=== PATIENT | male | born 1985 | race Caucasian/White ===

== ENCOUNTER 2022-10-20 07:00 | Day surgery (SDC) | payer OTHER ==
[2022-10-20] VITALS (225 sets, daily range): BP systolic 79–208; BP diastolic 36–160
[~2022-10-20] VITALS: Ht 172.7 cm; Wt 84.4 kg
--- NOTE | 2022-10-20 07:05 | NUR ---
PT, AND FAMILY HAVE ARRIVED TO [facility] SUITES, ALL ESCORTED TO ROOM, AND POC HAS BEEN EXPLAINED ALL QUESTIONS AHVE BEEN ANSWERED. PT HAS BEEN ORIENTED TO ROOM, CALL LIGHT AND FALL RISK PRECAUTIONS. PT IS A&OX3, FOLLOWS COMMANDS AND IS ABLE TO MAKE NEEDS KNOWN. PT HAS NO COMPLAINTS AT THIS TIME. PT HAS CALL LIGHT NEAR AND WILL CONTINUE TO MONITOR.
[2022-10-20 07:32] LABS: BASO% 0.3 % (0-3); EOS% 2.9 % (0-8); HEMATOCRIT 44.4 % (39.0-50.0); HEMOGLOBIN 14.9 g/dl (14.0-18.0); IMMATURE GRANULOCYTES 0.1 % (0.0-5.0); LYMPH% 26.1 % (15-41); MEAN CELL VOLUME 91.4 fL CALC (80.0-100.0); MEAN CORPUSCULAR HGB 30.7 pG CALC (26.0-32.0); MEAN CORPUSCULAR HGB CONC 33.6 g/dL CAL (32.0-36.0); MONO% 12.6 % (2-13); NEUT# 4.25 thou/uL (1.82-7.42); RED BLOOD COUNT 4.86 mill/uL (4.70-6.10); RED CELL DISTRI WIDTH 12.1 % (11.5-15.5)
[2022-10-20 08:03] LABS: ALBUMIN 4.2 g/dL (3.2-5.0); ALKALINE PHOSPHATASE 62 u/l (38-126); ANION GAP 13 (6-22 (CALC)); BILIRUBIN, TOTAL 0.7 mg/dL (0.2-1.3); BUN 19 mg/dL (9-20); BUN/CREATININE RATIO 23 (12-20 (CALC)); CARBON DIOXIDE 27 mmol/l (22-30); CHLORIDE 104 mmol/l (95-108); CREATININE 0.8 mg/dL (0.7-1.3); GFR FOR AFR.AMER. > 60 ML/MIN (>=60 (CALC)); GFR OTHER RACES > 60 ML/MIN (>=60 (CALC)); POTASSIUM 4.1 mmol/l (3.5-5.1); SGOT/AST 39 u/l (17-59); SODIUM 140 mmol/l (137-146); TOTAL PROTEIN 6.8 g/dL (6.3-8.2)
--- NOTE | 2022-10-20 09:30 | NUR ---
PT HAS BEEN REASSESSED, PT HAS BEEN ASSISTED TO BATHROOM, GAIT IS STEADY. PT HAS NO CHANGE AND HAS BEEN RESTING COMFORTABLY.
--- NOTE | 2022-10-20 11:25 | NUR ---
Induction Note Patient to [facility] procedure room. Time out performed at 1125. Patient placed on monitors, Malik hugger, bilateral wrist restraints applied for ET tube protection. Versed 5mg given IV push at 1126 Tourniquet applied to RIGHT arm Lidocaine 100mg given at 1127 IV push followed by Rocoronium 10mg at 1128 IV push and held for 90 seconds. Propofol bolus of 160mg given at 1130 IV push. Succinylcholine 80mg given IV push at 1131. Smooth intubation with 7.5 ETT. Positive CO2. Positive Auscultation for air exchange. Patient placed on ventilator for spontaneous ventilation. Placed on Propofol IV drip at 1132. OG inserted. Positive air on auscultation. Positive gastric content. Stomach washed at this time.
--- NOTE | 2022-10-20 11:40 | NUR ---
OG close note Stomach washed at this time. Naltrexone 50 mg with Clonidine 0.1 mg via OG tube. OG will be clamped for 45 minutes.
--- NOTE | 2022-10-20 12:25 | NUR ---
OG open note OG open at this time. Gastric content draining into drainage bag. OG to drain for 45 minutes. Propofol will be titrated down based on patient.
--- NOTE | 2022-10-20 13:10 | NUR ---
OG close note Stomach washed at this time. Naltrexone 50 mg with Clonidine 0.2 mg via OG tube. OG will be clamped for 45 minutes.
[2022-10-20] MEDS ORDERED: NALTREXONE50 MG PO (13:44)
[2022-10-20] MEDS ORDERED: CLONIDINE0.1 MG PO (13:44)
[2022-10-20] MEDS ORDERED: KLONOPIN2 MG PO (13:45)
--- NOTE | 2022-10-20 14:45 | NUR ---
OG close note Stomach washed at this time. Naltrexone 50 mg with Clonidine 0.3 mg via OG tube. OG will be clamped for 45 minutes.
--- NOTE | 2022-10-20 16:20 | NUR ---
OG close note Stomach washed at this time. Naltrexone 25 mg with Clonidine 0.2 mg via OG tube. OG will be clamped for 45 minutes.
--- NOTE | 2022-10-20 18:18 | NUR ---
Extubation note Closing medications given Benadryl 50mg IV push, Decadron 10mg IV push,Magnesium 4 grams IV, Zofran 8mg IV push, Octreotide 100mcg SC. Stomach washed out prior to extubation. Suctioned gastric content. OG removed. Patient extubated. Propofol Discontinued. Wrist restraints removed. Malik hugger Removed. See [facility] Moderate sedate recovery record for further notes and assessment.
--- NOTE | 2022-10-20 19:05 | NUR ---
RECEIVED PATIENT INTO ROOM 291. BEDSIDE REPORT RECEIVED FROM TRACIE LARRY. PATIENT RESTING EYES CLOSED. VSS, PATIENT ON CONTINUOUS PULSE OX, SATURATION 98% ON 2L/NC. NO DISTRESS NOTED. BED IN LOW POSITION, LOCKED AND ALARM ACTIVATED.
--- NOTE | 2022-10-20 22:08 | NUR ---
PATIENT C/O LOWER BACK PAIN 04/03, TORADOL 30MG IVP GIVEN AND REPOSITIONED FOR COMFORT.
[2022-10-21 04:02] VITALS: BP 117/60
--- NOTE | 2022-10-21 04:19 | NUR ---
PATIENT RESTING QUIETLY, EASILY AROUSED. MEDS ADMINISTERED WITHOUT DIFFICULTY. CLONIDINE HELD FOR HR OF 44 PER PULSE OXIMETRY. TEMPERATURE OF 100.2 F, TYLENOL 500MG GIVEN AND ICE PACK APPLIED TO BACK OF NECK. DENIES PAIN AT THIS TIME, NO DISTRESS NOTED. CALL LIGHT WITHIN REACH. BED ALARM ACTIVE.
[2022-10-21 06:20] LABS: BASO% 0.1 % (0-3); IMMATURE GRANULOCYTES 0.3 % (0.0-5.0); LYMPH% 8.5 % (15-41); MEAN CELL VOLUME 92.9 fL CALC (80.0-100.0); MEAN CORPUSCULAR HGB 31.2 pG CALC (26.0-32.0); MEAN CORPUSCULAR HGB CONC 33.6 g/dL CAL (32.0-36.0); MONO% 8.5 % (2-13); NEUT# 5.82 thou/uL (1.82-7.42); NEUT% 82.6 % (42-76); RED BLOOD COUNT 4.1 mill/uL (4.70-6.10); RED CELL DISTRI WIDTH 11.9 % (11.5-15.5)
[2022-10-21 06:31] LABS: HEMATOCRIT 38.1 % (39.0-50.0); HEMOGLOBIN 12.8 g/dl (14.0-18.0)
[2022-10-21 06:43] LABS: ALBUMIN 3.7 g/dL (3.2-5.0); ALKALINE PHOSPHATASE 53 u/l (38-126); ANION GAP 12 (6-22 (CALC)); BILIRUBIN, TOTAL 0.7 mg/dL (0.2-1.3); BUN 14 mg/dL (9-20); BUN/CREATININE RATIO 16 (12-20 (CALC)); CARBON DIOXIDE 25 mmol/l (22-30); CHLORIDE 112 mmol/l (95-108); CREATININE 0.9 mg/dL (0.7-1.3); GFR FOR AFR.AMER. > 60 ML/MIN (>=60 (CALC)); GFR OTHER RACES > 60 ML/MIN (>=60 (CALC)); MAGNESIUM 2.4 mg/dL (1.6-2.3); SGOT/AST 40 u/l (17-59); SODIUM 146 mmol/l (137-146); TOTAL PROTEIN 6.5 g/dL (6.3-8.2)
--- NOTE | 2022-10-21 07:33 | NUR ---
GOT REPORT FROM REGULATOR PIN INSERTER NURSE. PATIENT IS IN BED SLEEPING. NO SXS OF DISTRESS. FALL PRECAUTIONS ARE IN PLACE. CALL LIGHT AND BEDSIDE TABLE ARE WITHIN REACH.
[2022-10-21 07:39] VITALS: BP 121/52
--- NOTE | 2022-10-21 12:00 | NUR ---
PATIENT ON AND OFF OF SLEEPING. NO SXS OF DISTRESS. PATIENT HAS NO COMPLAINTS AT THIS TIME. PATIENT ALREADY HAS WALKED THE HALLS AND AROUND IN HIS ROOM. PATIENT ADVISED TO CALL IF HE NEEDS ANYTHING. PATIENT VERBALIZED UNDERSTANDING.
--- NOTE | 2022-10-21 16:01 | NUR ---
Discharge instructions given. Patient verbalizes understanding of same. Discharged in stable condition via Wheelchair to Home with family. All belongings sent with pt.
== END 2022-10-21 16:07 | disposition home or self-care (01) | DRG 897 ==
LOC: ANR 07:00 → MS2 07:00 → ANR 10-21 16:07
PROVIDERS: ATTEND Anesthesiology Critical Care Medicine
DX: F11.20 Opioid dependence, uncomplicated (principal)
CPT/HCPCS: J2354; J3475